=== PATIENT | male | born 1960 | race Caucasian/White ===

== ENCOUNTER 2018-11-05 19:12 | Emergency (ER) | payer OTHER ==
[~2018-11-05] VITALS: Ht 172.7 cm; Wt 70.3 kg
[2018-11-05 19:31] VITALS: BP 152/85
--- NOTE | 2018-11-05 19:37 | NUR ---
PT AMBULATED TO LOBBY. ACCOMPANIED BY FAMILY.
--- NOTE | 2018-11-05 20:06 | NUR ---
PT TAKEN TO BED 4
--- NOTE | 2018-11-05 20:12 | NUR ---
PT A0X4. ABLE TO VERBALIZE NEEDS. CC LLE BLEEDING. NO SIGNS OF ACUTE DISTRESS. BED IN LOWEST POSITION. BLEEDING CONTROLLED.
--- NOTE | 2018-11-05 20:16 | NUR ---
DR HUBBARD AT BEDSIDE
[2018-11-05 20:43] VITALS: BP 152/85
--- NOTE | 2018-11-05 20:43 | NUR ---
Patient discharged with v/s stable. Written and verbal after care instructions given and explained. Patient alert, oriented and verbalized understanding of instructions. Ambulatory with steady gait. All questions addressed prior to discharge. ID band removed. Patient advised to follow up with PMD. Patient educated on indication of medication including possible reaction and side effects. Opportunity to ask questions provided and answered.
== END 2018-11-05 20:43 | disposition home or self-care (01) ==
LOC: MED 19:12
DX: I83.91 Asymptomatic varicose veins of right lower extremity (principal)
CPT/HCPCS: 99282